=== PATIENT | male | born 1940 | race Caucasian/White ===

== ENCOUNTER 2018-05-21 14:26 | Outpatient (RCR) | payer MEDICARE, OTHER | END 2018-08-19 | disposition home or self-care (01) | LOC: ONC 14:26 | PROVIDERS: ATTEND Radiology Radiation Oncology | DX: C61 Malignant neoplasm of prostate (principal) | CPT/HCPCS: 99204 ==

== ENCOUNTER 2018-09-18 05:32 | Outpatient (CLI) | payer MEDICARE, OTHER ==
[~2018-09-18] VITALS: Ht 180.3 cm; Wt 90.7 kg
[2018-09-18] MEDS ORDERED: TIMO5DRO27 OP (15:06)
[2018-09-18] MEDS ORDERED: FAMO40TA6 PO (15:06)
[2018-09-18] MEDS ORDERED: BICA50TA5 PO (15:06)
[2018-09-18] MEDS ORDERED: BRIM10DR16 OP (15:06)
[2018-09-18] MEDS ORDERED: ASPI-586 PO (15:06)
[2018-09-18] MEDS ORDERED: LATA5DRO OP (15:06)
[2018-09-18] MEDS ORDERED: SIMV20TA3 PO (15:06)
== END 2018-09-18 15:18 | disposition home or self-care (01) ==
LOC: PREOP 05:32
PROVIDERS: ATTEND Radiology Radiation Oncology
DX: Z01.818 Encounter for other preprocedural examination (principal)

== ENCOUNTER 2018-09-25 10:26 | Day surgery (SDC) | payer MEDICARE, OTHER ==
[~2018-09-25] VITALS: Ht 180.3 cm; Wt 90.7 kg
[2018-09-25] VITALS (11 sets, daily range): BP systolic 110–147; BP diastolic 67–82
[~2018-09-25 10:26] MED LIST: ASPI-586 PO; BICA50TA5 PO; BRIM10DR16 OP; FAMO40TA6 PO; LATA5DRO OP; SIMV20TA3 PO; TIMO5DRO27 OP
[2018-09-25] MEDS ORDERED: LACTATED RINGERS 1,000 ML IV PRN (10:41)
[2018-09-25] MEDS ORDERED: LEVOFLOXACIN 500 MG/100 ML IV 100 ML IV ONE (10:45)
--- NOTE | 2018-09-25 11:27 | Progress Note-Pre Operative ---
Pre-Operative Progress Note H&P Reviewed The H&P was reviewed, patient examined and no changes noted. Date Seen by Provider: Sep 25, 2018 Time Seen by Provider: 11: Date H&P Reviewed: Sep 25, 2018 Time H&P Reviewed: 11:27 Pre-Operative Diagnosis: Prostate cancer cT1c, PSA 7.46, [place] 9 (4+5) MAGAN PAEZ MD Sep 25, 2018 11:27
--- NOTE | 2018-09-25 11:33 | Discharge Inst-Simple/Standard ---
Discharge Inst-Standard Discharge Medications New, Converted or Re-Newed RX: Other (Tylenol #3 called in 09/24/18 to Ara Perry) Patient Instructions/Follow Up Plan of Care/Instructions/FU: 1)one month post implant simulation at [facility] cancer center 10/23/18 at 11:00 a.m. 2)one month post op follow up with Dr. Guerrier 10/29/18 at 9:45 a.m. Activity as Tolerated: Yes Discharge Diet: No Restrictions Other Inst to Patient Please instruct patient/family how to remove lindquist catheter on Sunday09/30/18 first thing in morning. MAGAN PAEZ MD Sep 25, 2018 11:33
[2018-09-25] MEDS ORDERED: ACET1TAB43 PO (11:36)
[2018-09-25] MEDS ORDERED: BACITRACIN OINTMENT 28 GM TUBE ONE (12:02)
[2018-09-25] MEDS ORDERED: proPOfol 200 MG/20 ML (DIPRIVAN) VIAL IV ONE (12:24)
[2018-09-25] MEDS ORDERED: SEVOFLURANE (ULTANE) 15 ML INHAL SOLN ONE ×2 (12:24→13:31)
[2018-09-25] MEDS ORDERED: fentaNYL INJECTION 100 MCG/2 ML AMP ONE (12:25)
[2018-09-25] MEDS ORDERED: MIDAZOLAM 2 MG/2 ML (VERSED) VIAL ONE (12:25)
[2018-09-25] MEDS ORDERED: DEXAMETHASONE 10 MG/ML (DECADRON) 1 ML VIAL ONE (12:28)
[2018-09-25] MEDS ORDERED: ONDANSETRON 4 MG/2 ML (SDV) Z0FRAN ONE (12:28)
[2018-09-25] MEDS ORDERED: LIDOCAINE PF 2% 5 ML (XYLOCAINE) VIAL ONE (13:09)
--- NOTE | 2018-09-25 13:48 | Progress Note-Post Operative ---
Post-Operative Progess Note Surgeon (s)/Forklift Picker (s) Surgeon MAGAN PAEZ MD Forklift Picker: Nunu VALENZUELA MD Pre-Operative Diagnosis Prostate cancer cT1c, PSA 7.46, [place] 9 (4+5) Post-Operative Diagnosis Same as pre-op Procedure & Operative Findings Date of Procedure 09/25/18 Procedure Performed/Findings (1) 67% attenuated Cesium 131 permanent prostate seed implant (2) Cystogram (3) Injection of biodegradable hydrogel prostate-rectal spacer utilizing the SpaceO[employer] system Prostate volume 17.15 cc Anesthesia Type General Estimated Blood Loss Estimated blood loss (mL): minimal Specimens/Packing Specimens Removed none Packing: none MAGAN PAEZ MD Sep 25, 2018 13:48
--- NOTE | 2018-09-25 14:16 | Diagnostic Imaging Report ---
Indication: Prostate cancer. Impression: 18.96 of fluoroscopy and single digital image was obtained during brachytherapy prostate seed insertion by Dr. Maradiaga. Dictated by: Dictated on workstation # [id number]
== END 2018-09-25 16:20 | disposition home or self-care (01) ==
LOC: SDC 10:26
PROVIDERS: ATTEND Radiology Radiation Oncology
DX: C61 Malignant neoplasm of prostate (principal); C44.99 Other specified malignant neoplasm of skin, unspecified; K21.9 Gastro-esophageal reflux disease without esophagitis; E78.5 Hyperlipidemia, unspecified; E78.00 Pure hypercholesterolemia, unspecified; Z90.89 Acquired absence of other organs; Z80.52 Family history of malignant neoplasm of bladder; Z79.82 Long term (current) use of aspirin; Z79.899 Other long term (current) drug therapy; Z80.0 Family history of malignant neoplasm of digestive organs
CPT/HCPCS: 76965; 77290; 77318; 77332; 77370; 77470; 77778; 87081

== ENCOUNTER 2018-10-23 08:49 | Outpatient (RCR) | payer MEDICARE, OTHER ==
[~2018-10-23 08:49] MED LIST changes: +ACET1TAB43 PO
[2018-10-23 10:17] LABS: BUN/CREATININE RATIO 14; CREATININE SERUM 0.96 MG/DL (0.60-1.30)
[2018-10-23 10:18] LABS: GFR ESTIMATED > 60
== END 2018-12-09 | disposition home or self-care (01) ==
LOC: ONC 08:49
PROVIDERS: ATTEND Radiology Radiation Oncology
DX: Z51.0 Encounter for antineoplastic radiation therapy (principal); C61 Malignant neoplasm of prostate
CPT/HCPCS: 76873; 77290; 77295; 77331; 82565; 84520